=== PATIENT | male | born 1965 | race Caucasian/White ===

== ENCOUNTER 2021-10-13 00:12 | Day surgery (SDC) | payer BC, SELFPAY ==
[2021-10-12 12:54] VITALS: BMI 33.5
--- NOTE | 2021-10-12 13:09 | PC.NURSE ---
Report to the Outpatient Waiting Room, entrance under the green pavilion located off [facility], at time _11:00AM on date ___10/13/21____. OR Time: __1:00PM . - You and your visitor will be asked a series of questions to screen for COVID 19 for your protection. - Only one visitor is allowed at this time. - The patient visitor is requested to leave or wait in car when not with patient. - A mask is required within the hospital. Patients may have clear liquids (water, carbonated beverages, clear teas, apple juice) until 3 hours prior to surgery with a maximum of 20 ounces. - No food from midnight until time of surgery - Infants may have breast milk until 4 hours before surgery, infant formula 6 hours prior to surgery. - Children will be allowed to drink immediately following surgery. If applicable, please bring a bottle or sippy cup to assist with drinking. Juice, water, soda, and popsicles are readily available. For infants on formula, please bring formula the day of surgery. Pacifiers are allowed. Take the following medications with a SIP of water the morning of surgery: __HYDROCODONE NEEDED Medications to discontinue per physician ___HOLD ALL VITAMINS/SUPPLEMENTS STARTING NOW-10/12/21 Date to take last dose Please no make-up, nail slovak, hairspray, perfume, deodorant, or body powder the day of surgery. No jewelry (including any body piercings) or valuables the day of surgery, leave them at home. Please take a shower or bath the night before, or the morning of, surgery with an antibacterial soap. Wear comfortable, loose fitting clothing. Children are encouraged to wear pajamas. - Jewelry must be removed prior to entering the operating room. Rings and piercings that are not removed may be cut off. - The hospital will not accept responsibility for valuables. - Please leave all valuables, including medications, at home the day of surgery. If you are going home after surgery, a licensed driver/sales workers must drive you home. - NO public transportation without another adult. - We recommend that an adult stay with you for 24 hours following discharge. - We also recommend that you do not drive, make important decision, drink alcoholic beverages, or take any drugs that were not prescribed by your health care provider for at least 24 hours after your discharge time. For Pediatric surgeries, we recommend two adults accompany the child home (only one inside the building at this time). Follow any additional instructions given to you from your surgeon. If you or anyone in your household have experienced Covid symptoms in the past week, please notify your surgeon or the nurse liaison at the phone number below for possible testing. Telephone instructions given to __PATIENT and asked if any additional questions and then verbalized understanding. Patient advised to call surgeon office or pre surgery nurse liaison [phone] if any additional questions.
[2021-10-13] VITALS (7 sets, daily range): BP systolic 126–152; BP diastolic 78–97; PULSE 86–103; RESP 10–20; TEMP 36.3–36.4; O2SAT 97–100
--- NOTE | ~2021-10-13 | XR_ITS ---
EXAMINATION: XR retrograde pyelo w/stent RT DATE: 10/13/2021 13:15 CDT INDICATION: right retro, right stent placement . TECHNIQUE: 4 fluoroscopic images of the abdomen and pelvis were obtained during right retrograde pyel ography with stent placement performed by the surgeon. I was not present in the operating room. Fluor oscopy exposure time was 63.4 seconds. Cumulative dose was 1.14 mGy2. COMPARISON: None FINDINGS: Fluoroscopic images demonstrate catheterization of the right ureter with wire access followed by uret eral stent placement, into expected position. IMPRESSION: Fluoroscopic documentation of right retrograde pyelography with stent placement. Reviewed, dictated and finalized at location K. IMPRESSION: Fluoroscopic documentation of right retrograde pyelography with stent placement .
--- NOTE | 2021-10-13 10:14 | P.PNAN_ITS ---
Anes - Initial Pre Proc Eval Procedure: Operation Date: 10/13/21 13:00 Proposed Procedures p Cystoscopy, Right Retrograde Pyelogram, Right Ureteroscopy, Right Ureteral Stent Placement, Stone Extraction, Possible Holmium Laser Lithotripsy - Jacob Carbajal MD Date/Time: 10/13/21 10:14 Surgeon: Jacob Carbajal MD Pre Op Diagnosis: right ureteral stone Patient Data Age: 56 Gender: M Height: 1.93 m Weight: 125 kg Allergies Allergy/AdvReac Type Severity Reaction Status Date / Time No Known Allergies Allergy Verified 10/13/21 11:08 Home Medications Medication Instructions Recorded Confirmed Type cholecalciferol (vitamin D3) 100 100 mcg PO DAILY 10/12/21 10/13/21 History mcg (4,000 unit) tablet cholestyramine (with sugar) 4 gram 1 ea PO DAILY 10/12/21 10/13/21 History powder for susp in a packet hydrocodone 5 mg-acetaminophen 325 1 tablet PO Q4-6H Y 10/12/21 10/13/21 History mg tablet multivitamin 1 tablet PO DAILY 10/12/21 10/13/21 History tamsulosin 0.4 mg capsule 1 cap PO DAILY PRN Pain 10/12/21 10/12/21 History Patient hx anesthesia problems: none Family hx anesthesia problems: none Results Review: All pre-operative results and documents have been reviewed as part of the pre- operative evaluation. REPLACED BY [facility] Past Medical History Medical History (Updated 10/13/21 @ 10:15 by Roque Marcos MD) Obesity Ureterolithiasis Social History Social History Smoking status: Never smoker Alcohol intake: current Substance use: never Living arrangements: with family Additional living arrangements comments: [facility] Spiritual care concerns: No Anes - Eval Final PreProcedure Day of Procedure 10/13/21 10:14 Patient weight: obese Heart: regular rate and rhythm Lungs: clear to auscultation and normal air movement Airway: Mallampati scale class II Neurological: alert and oriented Last oral intake: >/= 8 hours ASA classification: II Emergent: no Anesthetic plan: proceed Anesthesia type and monitoring: general LMA Results Review: All pre-operative results and documents have been reviewed as part of the pre- operative evaluation. Informed Consent: The patient's anesthetic plan and its attendant risks and benefits were discussed with the patient/family/POA. Questions were solicited and answers provided to the satisfaction of the patient/family/POA.
[2021-10-13] MEDS: LACTATED RINGERS 1,000 ML 30 ML IV CONT ×2 (11:15→13:54)
--- NOTE | 2021-10-13 12:26 | WPDHPUPDATE1 ---
History and Physical Update Update Date/Time: 10/13/21 12:26 History and Physical has been reviewed, including an updated exam of the patient. There are NO changes in the patient's condition. Risks, benefits, and alternatives have been discussed and questions answered. Patient agrees to proceed with procedure. Proceed with cystoscopy, right retrograde pyelogram, right ureteroscopy with holmium laser stone extraction, stent placement
[2021-10-13] MEDS: ceFAZolin 3 GM/D5W 100 ML 100 ML IVPB (12:58)
[2021-10-13] MEDS: LIDOCAINE HCL 2% GEL UROJET 10 ML PKG MUCOUS MEM (13:40)
--- NOTE | 2021-10-13 13:43 | W.PM.PROC2 ---
Procedure Note - Detailed Date of Procedure 10/13/21 Pre-op Diagnosis right ureteral stone Post-op Diagnosis Same Procedure Performed Cystoscopy, right retrograde pyelogram, right ureteroscopy with stone extraction, right ureteral stent placement 4 x 26 [place] Surgeon Jacob Carbajal MD Anesthesia General Findings 6-7 mm right ureteral calculus Description of Procedure Patient was taken to the operative suite and correctly identified. Once anesthesia was obtained he was placed in dorsal lithotomy position and prepped and draped usual sterile fashion. Nineteen Slovenian scope inserted bladder in direct vision. He has a elevated median bar area. The bladder itself has no tumors. The right ureteral orifice was cannulated with a guidewire. Ureteral access sheath was placed. Mini flexible ureteroscope was inserted. Stone was visualized. Using escape basket we were able to retrieve the stone its entirety and sent for analysis. Pyelogram was then performed to confirm placement the stent. 4 x 26 cm stent was then placed with the proximal end coiled in the renal pelvis and the distal in the bladder. Bladder was drained. 2% viscous lidocaine was inserted into the urethra patient is taken recovery stable condition. He will follow up in a week's time for stent removal. Estimated Blood Loss 0 Drains Yes Packing No Pathology Yes Complications No immediate complications Condition Stable Disposition PACU
[2021-10-13] MEDS: ONDANSETRON INJ 4 MG/2 ML VIAL IV PUSH (14:29)
== END 2021-10-13 15:30 | disposition home or self-care (01) ==
PROVIDERS: PCP Family Medicine; Visit Provider Urology
PROC: (CPT 52352; principal; 2021-10-13 13:00)
DX: N20.1 Calculus of ureter (principal); E66.9 Obesity, unspecified; Z68.32 Body mass index [BMI] 32.0-32.9, adult
CPT/HCPCS: 52332; 52352; 74420; 82365; 88300; A9270; C1758; C1769; C1894; C2617; J0690; J1100; J2250; J2405; J2704; J3010; J7120

== ENCOUNTER 2021-12-01 14:20 | Outpatient (CLI) | payer BC, SELFPAY ==
--- NOTE | ~2021-12-01 | XR_ITS ---
EXAM: XR abdomen/kub 1V DATE: 12/01/2021 14:47 HISTORY: CALCIUM KIDNEY STONE FOLLOW UP . COMPARISON: None available. FINDINGS: Cholecystectomy clips. Clear lung bases. Normal bowel gas pattern. No organomegaly. Multipl e calculi project over the left kidney measuring up to 15 mm. No definite right-sided or distal calci fications appreciated. Regional bones and soft tissues normal for age. IMPRESSION: Left nephrolithiasis. CT abdomen pelvis with be helpful for more definitive evaluation or comparison to outside studies if available. Reviewed, dictated and finalized at location K. IMPRESSION: Left nephrolithiasis. CT abdomen pelvis with be helpful for more de finitive evaluation or comparison to outside studies if available.
== END 2021-12-01 14:21 | disposition home or self-care (01) ==
LOC: ANHIMG 14:24
PROVIDERS: PCP Family Medicine; Visit Provider Urology
DX: N20.0 Calculus of kidney (principal)
CPT/HCPCS: 74018